=== PATIENT | female | born 1980 | race American Indian/Alaskan Native ===

== ENCOUNTER 2019-04-09 00:12 | Emergency (ER) | payer MEDICAID ==
[2019-04-09 00:19] VITALS: BP 149/95
[2019-04-09] MEDS ORDERED: BENADRYL PO ONE (01:27)
[2019-04-09] MEDS ORDERED: SOLU-Medrol IM ONE (01:27)
[2019-04-09] MEDS ORDERED: PEPCID PO ONE (01:28)
--- NOTE | 2019-04-09 02:48 | Emergency Department Report ---
ED Allergic Reaction HPI - General Chief complaint: Allergic Reaction Stated complaint: ALLERGIC REACTION Time Seen by Provider: 04/09/19 01:20 Source: patient Mode of arrival: Ambulatory Limitations: No Limitations - History of Present Illness Initial Comments: Patient is a 39-year-old Mosoth[place] female with no past medical history presents to the ED with complaint of acute onset persistent itchy diffuse maculopapular urticarial rash with nasal congestion for the last one hour after using a new hair product about an hour ago. Patient denies swelling of the tongue, swollen throat, dysphagia, dysphonia, wheezing, cough, shortness of breath, chest pain, abdominal pain, nausea, vomiting, diarrhea, fever or chills and dizziness. Patient states that she took Nivia prior to arrival in the hospital. MD Complaint: allergic reaction, hives, other (nasal congestion) -: Sudden, hour(s) (1) Exposure: other (hair chemical) Symptoms: rash, itching. denies: facial swelling, lip swelling, difficulty swallowing, difficulty breathing, orolingual swelling, hoarseness, syncopy, dizziness, nausea, vomiting, other, abdominal pain Severity: moderate Treatment Prior to Arrival: none Previous Allergy History: none - Related Data Previous Rx's Medication Instructions Recorded Last Taken Type EPINEPHrine [Epipen 2-Antonino] 0.3 mg IM DAILY PRN #2 ml 09/19/18 Unknown Rx Famotidine [Pepcid] 20 mg PO BID #10 tablet 09/19/18 Unknown Rx diphenhydrAMINE [Benadryl] 50 mg PO Q8HR PRN #20 capsule 09/19/18 Unknown Rx predniSONE [Deltasone] 40 mg PO QDAY #8 tab 09/19/18 Unknown Rx Prednisone [predniSONE 10 mg 10 mg PO .TAPER #21 tab.ds.pk 04/09/19 Unknown Rx (6-Day Pack, 21 Tabs)] Ranitidine HCl [Zantac] 150 mg PO Q12H #30 tablet 04/09/19 Unknown Rx diphenhydrAMINE [Benadryl CAP] 25 mg PO Q6HR PRN #30 capsule 04/09/19 Unknown Rx Allergies Allergy/AdvReac Type Severity Reaction Status Date / Time No Known Allergies Allergy Verified 09/18/18 22:23 ED Review of Systems ROS: Stated complaint: ALLERGIC REACTION Other details as noted in HPI Constitutional: denies: chills, fever Eyes: denies: eye pain, eye discharge, vision change ENT: denies: ear pain, throat pain Respiratory: denies: cough, shortness of breath, wheezing Cardiovascular: denies: chest pain, palpitations, dyspnea on exertion Endocrine: no symptoms reported Gastrointestinal: denies: abdominal pain, nausea, diarrhea Genitourinary: denies: urgency, dysuria, discharge Musculoskeletal: denies: back pain, joint swelling, arthralgia Skin: rash, change in color, pruritus, other (diffuse maculopapular erythematous urticarial rashes). denies: lesions Neurological: denies: headache, weakness, paresthesias Psychiatric: denies: anxiety, depression Hematological/Lymphatic: denies: easy bleeding, easy bruising ED Past Medical Hx - Past Medical History Previous Medical History?: No - Surgical History Past Surgical History?: Yes Additional Surgical History: x3 - Social History Smoking Status: Never Smoker Substance Use Type: None - Medications Home Medications: Home Medications Medication Instructions Recorded Confirmed Last Taken Type EPINEPHrine [Epipen 2-Antonino] 0.3 mg IM DAILY PRN #2 ml 09/19/18 Unknown Rx Famotidine [Pepcid] 20 mg PO BID #10 tablet 09/19/18 Unknown Rx diphenhydrAMINE [Benadryl] 50 mg PO Q8HR PRN #20 capsule 09/19/18 Unknown Rx predniSONE [Deltasone] 40 mg PO QDAY #8 tab 09/19/18 Unknown Rx Prednisone [predniSONE 10 mg 10 mg PO .TAPER #21 tab.ds.pk 04/09/19 Unknown Rx (6-Day Pack, 21 Tabs)] Ranitidine HCl [Zantac] 150 mg PO Q12H #30 tablet 04/09/19 Unknown Rx diphenhydrAMINE [Benadryl CAP] 25 mg PO Q6HR PRN #30 capsule 04/09/19 Unknown Rx ED Physical Exam - General Limitations: No Limitations General appearance: alert, in no apparent distress - Head Head exam: Present: atraumatic, normocephalic, normal inspection - Eye Eye exam: Present: normal appearance, PERRL, EOMI - ENT ENT exam: Present: normal exam, normal orophraynx, mucous membranes moist, TM's normal bilaterally, normal external ear exam - Neck Neck exam: Present: normal inspection, full ROM. Absent: tenderness - Respiratory Respiratory exam: Present: normal lung sounds bilaterally. Absent: respiratory distress, wheezes, rhonchi, chest wall tenderness, accessory muscle use, decreased breath sounds, prolonged expiratory - Cardiovascular Cardiovascular Exam: Present: regular rate, normal rhythm, normal heart sounds. Absent: systolic murmur, diastolic murmur, rubs, gallop - GI/Abdominal GI/Abdominal exam: Present: soft, normal bowel sounds. Absent: tenderness, guarding, rebound, hyperactive bowel sounds, hypoactive bowel sounds, organomegaly - Rectal Rectal exam: Present: deferred - Extremities Exam Extremities exam: Present: normal inspection, full ROM, normal capillary refill - Back Exam Back exam: Present: normal inspection, full ROM. Absent: tenderness, CVA tenderness (L), muscle spasm, paraspinal tenderness - Neurological Exam Neurological exam: Present: alert, oriented X3, CN II-XII intact, normal gait, reflexes normal - Psychiatric Psychiatric exam: Present: normal affect, normal mood - Skin Skin exam: Present: warm, dry, intact, rash, erythema, urticaria, other (diffuse erythematous maculopapular urticarial rashes) ED Course Vital Signs 04/09/19 00:14 Temperature 98.2 F Pulse Rate 83 Respiratory 18 Rate Blood Pressure 149/95 O2 Sat by Pulse 100 Oximetry - Reevaluation(s) Reevaluation #1: 04/09/19 02:52 Patient is alert and oriented 3 and is not in distress. Patient is treated for acute allergic reaction in the ED with steroids, Benadryl and Pepcid. On reevaluation, his symptoms resolved with medications. Patient was discharged home on medications and advised follow-up with her primary care physician in 3-5 days for reevaluation. Patient was advised to return to the ED immediately if symptoms get worse. ED Medical Decision Making - Medical Decision Making Patient is alert and oriented 3 and is not in distress. Patient is treated for acute allergic reaction in the ED with steroids, Benadryl and Pepcid. On reevaluation, his symptoms resolved with medications. Patient was discharged home on medications and advised follow-up with her primary care physician in 3-5 days for reevaluation. Patient was advised to return to the ED immediately if symptoms get worse. - Differential Diagnosis acute allergic reaction, itching with irritation, acute urticaria Critical care attestation.: If time is entered above; I have spent that time in minutes in the direct care of this critically ill patient, excluding procedure time. ED Disposition Clinical Impression: Acute urticaria, Itching with irritation Acute allergic reaction Qualifiers: Encounter type: initial encounter Qualified Code(s): T78.40XA - Allergy, unspecified, initial encounter Disposition: TO HOME OR SELFCARE Is pt being admited?: No Does the pt Need Aspirin: No Condition: Stable Instructions: Urticaria (ED), Allergies (ED), Itchy Skin (ED) Additional Instructions: Take medications with food, drink plenty of fluids and follow-up with your primary-care physician in 3-5 days for reevaluation. Return to the ED immediately if symptoms get worse. Prescriptions: diphenhydrAMINE [Benadryl CAP] 25 mg PO Q6HR PRN #30 capsule PRN Reason: Itching Prednisone [predniSONE 10 mg (6-Day Pack, 21 Tabs)] 10 mg PO .TAPER #21 tab.ds. pk Ranitidine HCl [Zantac] 150 mg PO Q12H #30 tablet Referrals: JAYMIE GRANGER MD [Primary Care Provider] - 3-5 Days Time of Disposition: 02:45 Print Language: GERMAN
== END 2019-04-09 02:52 | disposition home or self-care (01) ==
LOC: ED 00:12
DX: T78.40XA Allergy, unspecified, initial encounter (principal); L50.9 Urticaria, unspecified; Z79.899 Other long term (current) drug therapy; X58.XXXA Exposure to other specified factors, initial encounter; Y93.89 Activity, other specified; Y92.89 Other specified places as the place of occurrence of the external cause; Y99.8 Other external cause status
CPT/HCPCS: 96372; 99282; J2930

== ENCOUNTER 2021-02-01 16:37 | Emergency (ER) | payer SELFPAY ==
[2021-02-01 17:00] VITALS: BP 133/79
[2021-02-01] MEDS ORDERED: TETANUS,DIPH,PERTUSS(ACELL) VACCINE 0.5 ML SYRINGE IM ONE (17:25)
[2021-02-01] MEDS ORDERED: IBUPROFEN 800 MG TAB PO ONE (17:26)
--- NOTE | 2021-02-01 17:37 | Emergency Department Report ---
Upper Extremity - HPI Chief Complaint: Extremity Injury, Upper Stated Complaint: SWOLLEN INFECTED FINGER/RT Time Seen by Provider: 02/01/21 17:21 Upper Extremity: Right Index Finger Occurred When: 3 Days Mechanism: Other (Struck finger on object ) Severity: moderate Symptoms: Yes Pain with Movement, Yes Limited Range of Movement, Yes Swelling, No Deformity, No Numbness, No Weakness, No Bruising/Ecchymosis, No Laceration or Abrasion Other History: 41 yr old female with pmhx of HTN presents to ED with c/o right index finger pain and swelling. Pt states she accidentally struck her finger on something 3 days ago. 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 She states today she went and removed the artificial nail from that finger and after removing it she noticed a "crack" to her natural nail on that finger and mild green discoloration. She denies any pus drainage. She reports pain with movement of finger and on touching finger. She is right hand dominant. She denies any fever or chills. ED Review of Systems ROS: Stated complaint: SWOLLEN INFECTED FINGER/RT Other details as noted in HPI Comment: All other systems reviewed and negative Constitutional: denies: chills, fever Eyes: denies: eye pain, eye discharge, vision change ENT: denies: ear pain, throat pain, dental pain, hearing loss, epistaxis, congestion Respiratory: denies: cough, shortness of breath, wheezing Cardiovascular: denies: chest pain, palpitations Gastrointestinal: denies: abdominal pain, nausea, vomiting, diarrhea, constipation, hematemesis, melena, hematochezia Genitourinary: denies: urgency, dysuria, frequency, hematuria, discharge, abnormal menses Musculoskeletal: joint swelling, arthralgia. denies: back pain Skin: change in hair/nails Neurological: denies: headache, weakness, paresthesias Psychiatric: denies: anxiety, depression Hematological/Lymphatic: denies: easy bleeding, easy bruising ED Past Medical Hx - Past Medical History Hx Hypertension: Yes - Surgical History Additional Surgical History: x3 - Social History Smoking Status: Never Smoker Substance Use Type: None - Medications Home Medications: Home Medications Medication Instructions Recorded Confirmed Last Taken Type EPINEPHrine [Epipen 2-Antonino] 0.3 mg IM DAILY PRN #2 ml 09/19/18 Unknown Rx Famotidine [Pepcid] 20 mg PO BID #10 tablet 09/19/18 Unknown Rx raNITIdine HCl [Zantac] 150 mg PO Q12H #30 tablet 04/09/19 Unknown Rx Ibuprofen [Motrin] 800 mg PO Q8HR PRN #30 tablet 02/01/21 Unknown Rx cephALEXin [Keflex] 500 mg PO Q6HR #40 capsule 02/01/21 Unknown Rx Upper Extremity Exam - Exam General: Vital signs noted. No distress. Alert and acting appropriately. Head and Torso: No HEENT Abnormality, No Chest/Lungs Abnormality Hand: Yes Digit Tenderness (severe ttp distal right index finger mainly around nail fold with mod erythema mainly around nail fold; there is mild swelling not ed to distal finger. No streaking redness; She has limited flex of DIP joint chronically due to hx of flex tendon injuyr in past; cap refill nl, sensation finger intact; no induration, flucutance, nail avulsion, subungual hematoma noted) CMS Exam: Yes Normal Distal Pulses, Yes Normal Capillary Refill, Yes Normal Distal Sensation, No Broken Skin ED Course Vital Signs 02/01/21 16:52 Temperature 98.9 F Pulse Rate 62 Respiratory 20 Rate Blood Pressure 133/79 ED Medical Decision Making - Radiology Data Radiology results: report reviewed Patient: NESTOR WISE MR#: [id number] : 1980 Acct:[id number] Age/Sex: 41 / F ADM Date: 02/01/21 Loc: ED Attending Dr: Ordering Physician: DEON BERKOWITZ Date of Service: 02/01/21 Procedure(s): XR finger(s) 2+V RT Accession Number(s): [id number] cc: DEON BERKOWITZ Fluoro Time In Minutes: RIGHT INDEX FINGER 3 VIEWS INDICATION / CLINICAL INFORMATION: Right index finger injury. COMPARISON: None available. FINDINGS: BONES and JOINT(S): No acute fracture or subluxation. No significant arthritis. SOFT TISSUES: No significant abnormality. ADDITIONAL FINDINGS: None. IMPRESSION: 1. No acute findings. Signer Name: Jase Weiner MD Signed: 02/01/2021 5:54 PM Workstation Name: [id number] Transcribed By: MACK Dictated By: Jase Weiner MD Electronically Authenticated By: Jase Weiner MD Signed Date/Time: 02/01/211753 DD/ 53 TD/TT: - Medical Decision Making Xray shows nothing acute. Pt has cellulitis mainly around nail fold of left index finger without any streaking, apparen paronychia/felon, or infected tenosynovitis; she does not have nail version and no subungual hematoma; patient be started on antibiotics given medication for pain. Patient is well- appearing, not toxic and not in any acute distress. Her vital signs are stable. Discussed imaging results and suspected diagnosis and treatment plan with patient. She expressed understanding of instructions and agree with plan. She was stable at time of discharge. Critical care attestation.: If time is entered above; I have spent that time in minutes in the direct care of this critically ill patient, excluding procedure time. ED Disposition Clinical Impression: Cellulitis of finger Disposition: DC-01 TO HOME OR SELFCARE Is pt being admited?: No Does the pt Need Aspirin: No Condition: Stable Instructions: Cellulitis, Adult, [id number] Additional Instructions: Take the keflex and the motrin as prescribed. I recommend no manicures until or doing hair until finger improves. Follow up with PCP. Return to ED if worse. Prescriptions: cephALEXin [Keflex] 500 mg PO Q6HR #40 capsule Ibuprofen [Motrin] 800 mg PO Q8HR PRN #30 tablet PRN Reason: PAin Referrals: JAYMIE GRANGER MD [Staff Physician] - 3-5 Days Time of Disposition: 18:10
--- NOTE | 2021-02-01 17:58 | XRay Report ---
RIGHT INDEX FINGER 3 VIEWS INDICATION / CLINICAL INFORMATION: Right index finger injury. COMPARISON: None available. FINDINGS: BONES and JOINT(S): No acute fracture or subluxation. No significant arthritis. SOFT TISSUES: No significant abnormality. ADDITIONAL FINDINGS: None. IMPRESSION: 1. No acute findings. Signer Name: Jase Weiner MD Signed: 02/01/2021 5:54 PM Workstation Name: [id number]
== END 2021-02-01 18:54 | disposition home or self-care (01) ==
LOC: ED 16:37
DX: L03.012 Cellulitis of left finger (principal); I10 Essential (primary) hypertension; Z98.890 Other specified postprocedural states; Z79.899 Other long term (current) drug therapy
CPT/HCPCS: 90471; 90715